=== PATIENT | male | born 1955 | race Caucasian/White ===

== ENCOUNTER 2017-05-05 12:01 | Day surgery (SDC) | payer BC, OTHER ==
[2017-05-05] VITALS (10 sets, daily range): BP systolic 111–159; BP diastolic 69–96; PULSE 60–74; TEMP 97.4–98.4
[~2017-05-05] VITALS: Ht 172.7 cm; Wt 56.5 kg
[~2017-05-05 12:01] MED LIST: CIPRO 500MG TA500 MG PO; LORTAB 5/500 501 TAB PO; NO HOME MEDICATIONS; NORCO 325 MG-7.1 TAB PO
[2017-05-05 12:54] LABS: BASO # 0.1 (0.0-0.2); BASO % 0.7 % (0.0-2.0); EOS # 0.1 (0.0-0.7); EOS % 1.7 % (0-4.0); GRAN % 54.3 % (42.2-75.2); HEMATOCRIT 47.2 % (42.0-52.0); HEMOGLOBIN 16.2 g/dl (13.5-18.0); LYMPH # 2.4 (1.2-3.4); LYMPH % 31.8 % (20.0-51.0); MEAN CELL VOLUME 93 fl (80.0-100.0); MEAN CORPUSCULAR HEMOGLOBIN 32 pg (27.0-31.0); MEAN CORPUSCULAR HGB CONC 34 g/dl (33.0-37.0); MEAN PLATELET VOLUME 10.7 fl (7.4-10.4); MONO # 0.8 (0.1-0.6); MONO % 11.2 % (1.7-9.3); PLATELET COUNT 222 K/mm3 (130-400); RED BLOOD COUNT 5.07 M/mm3 (4.20-5.60); REDCELL DISTRIBUTION WIDTH-CV 12.1 % (11.5-14.5)
[2017-05-06 01:24] VITALS: BP 108/68; PULSE 70; TEMP 98.1
[2017-05-06 05:24] VITALS: BP 138/77; PULSE 71; TEMP 98.4
[2017-05-06 09:49] VITALS: BP 152/75; PULSE 66; TEMP 97.4
[2017-05-06 13:58] VITALS: BP 143/71; PULSE 66; TEMP 98.2
== END 2017-05-06 17:45 | disposition home or self-care (01) ==
LOC: SDCO 12:01 → SURG 17:34 → SDCO 05-06 17:45
PROVIDERS: Urology
DX: C67.9 Malignant neoplasm of bladder, unspecified (principal); N30.20 Other chronic cystitis without hematuria; E78.5 Hyperlipidemia, unspecified; R73.03 Prediabetes; E66.9 Obesity, unspecified; Z90.49 Acquired absence of other specified parts of digestive tract
CPT/HCPCS: OP; A9284; J0360; J0690; J1100; J2270; J2405; J2704; J3010; J7120; J9280

== ENCOUNTER 2017-06-03 05:23 | Day surgery (SDC) | payer BC, OTHER ==
[~2017-06-03] VITALS: Ht 172.7 cm; Wt 124.3 kg
[2017-06-03] VITALS (10 sets, daily range): BP systolic 119–145; BP diastolic 70–90; PULSE 57–80; TEMP 97.6–98.2
[2017-06-03] MEDS ORDERED: TYLENOL 325MG325 MG PO (05:45)
[2017-06-03] MEDS ORDERED: PRILOTC PO (05:46)
== END 2017-06-03 19:10 | disposition home or self-care (01) ==
LOC: SDCO 05:23 → SURG 08:30 → SDCO 19:10
DX: C67.9 Malignant neoplasm of bladder, unspecified (principal); E78.5 Hyperlipidemia, unspecified; E66.9 Obesity, unspecified; R73.03 Prediabetes; Z90.49 Acquired absence of other specified parts of digestive tract; Z87.891 Personal history of nicotine dependence
CPT/HCPCS: OP; J0360; J0690; J1100; J2270; J2405; J2704; J3010; J3480; J7120

== ENCOUNTER 2017-07-16 10:52 | Day surgery (SDC) | payer BC, OTHER ==
[2017-07-16] VITALS (11 sets, daily range): BP systolic 118–152; BP diastolic 74–88; PULSE 46–66; TEMP 97.5–98.5
[~2017-07-16] VITALS: Ht 167.6 cm; Wt 121.1 kg
[~2017-07-16 10:52] MED LIST changes: +PRILOTC PO; +TYLENOL 325MG325 MG PO
[2017-07-17 05:16] VITALS: BP 159/80; PULSE 55; TEMP 98.1
[2017-07-17 07:54] VITALS: BP 171/86; PULSE 59; TEMP 97.4
== END 2017-07-17 11:20 | disposition home or self-care (01) ==
LOC: SDCO 10:52 → SURG 14:20 → SDCO 07-17 11:20
DX: C67.9 Malignant neoplasm of bladder, unspecified (principal)
CPT/HCPCS: OP; J0690; J1100; J2270; J2405; J2704; J3010; J7120

== ENCOUNTER 2017-11-05 06:39 | Day surgery (SDC) | payer BC, OTHER ==
[~2017-11-05] VITALS: Ht 172.7 cm; Wt 117.9 kg
[2017-11-05] VITALS (15 sets, daily range): BP systolic 113–156; BP diastolic 61–90; PULSE 43–84; TEMP 97–97.6
[2017-11-06 00:01] VITALS: BP 117/67; PULSE 91; TEMP 98.2
[2017-11-06 00:15] VITALS: BP 136/84; PULSE 62
[2017-11-06 03:47] VITALS: BP 142/63; PULSE 68; TEMP 98.6
[2017-11-06 08:58] VITALS: BP 159/93; PULSE 61; TEMP 98.2; TEMP 98.7
[2017-11-06 12:26] VITALS: BP 160/86; PULSE 61; TEMP 98.2; TEMP 98.3
== END 2017-11-06 12:00 | disposition home or self-care (01) ==
LOC: SDCO 06:39 → SURG 11:07 → SDCO 11-06 12:00
DX: C67.9 Malignant neoplasm of bladder, unspecified (principal); R31.0 Gross hematuria; E78.5 Hyperlipidemia, unspecified; R73.03 Prediabetes; K21.9 Gastro-esophageal reflux disease without esophagitis; E66.9 Obesity, unspecified; Z68.41 Body mass index [BMI] 40.0-44.9, adult; Z90.49 Acquired absence of other specified parts of digestive tract
CPT/HCPCS: OP; J0690; J1100; J1885; J2250; J2270; J2405; J2704; J3010; J7120

== ENCOUNTER 2018-03-31 07:13 | Day surgery (SDC) | payer BC, OTHER ==
[2018-03-31] VITALS (8 sets, daily range): BP systolic 137–154; BP diastolic 81–94; PULSE 61–84; TEMP 96–98.4
[~2018-03-31] VITALS: Ht 172.7 cm; Wt 122.4 kg
--- NOTE | 2018-03-31 09:15 | NUR ---
Patient rounding completed. Patient resting comfortably in room. Denies any needs at this time.
--- NOTE | 2018-03-31 10:14 | NUR ---
Patient rounding completed. Patient resting comfortably in room. Denies any needs at this time.
--- NOTE | 2018-03-31 12:17 | NUR ---
REPORT FROM [facility] PACU @ 1150. PT TO ROOM 350 PER BED. A/OX3. LUNGS CLEAR, BOWEL SOUNDS PRESENT,. QUINN TO DD WITH CBI RUNNING CLEAR. SCDS PLACED BILATERALLY. PT DENIES NEEDS. MAY DISCHARGE WHEN CRITERIA MET.
--- NOTE | 2018-03-31 17:34 | NUR ---
DISCHARGE INSTRURCTIONS REVIEWED WITH PATIENT QUESTIONS ANSWERED. PT AMBULATORY TO FRONT.
== END 2018-03-31 17:30 | disposition home or self-care (01) ==
LOC: SDCO 07:13 → SURG 12:00 → SDCO 17:30
DX: C67.2 Malignant neoplasm of lateral wall of bladder (principal); Z85.51 Personal history of malignant neoplasm of bladder; E78.5 Hyperlipidemia, unspecified; R73.03 Prediabetes; E66.9 Obesity, unspecified; Z68.41 Body mass index [BMI] 40.0-44.9, adult
CPT/HCPCS: OP; J0690; J1100; J2405; J2704; J3010; J7120

== ENCOUNTER 2020-09-13 09:37 | Day surgery (SDC) | payer BC, MEDICARE, OTHER ==
[~2020-09-13] VITALS: Ht 172.7 cm; Wt 116.0 kg
[2020-09-13 10:49] VITALS: BP 122/94; PULSE 73; TEMP 98.5
[2020-09-13 11:45] VITALS: BP 125/83; PULSE 70; TEMP 97.4
--- NOTE | 2020-09-13 11:45 | NUR ---
Patient arrives to [facility] via cart, accompanied by Endo RN. He is alert and oriented. He ambulates to the chair in his room with steady gait. PIV to TKO. Monitoring is applied - VSS and WNL on room air. He denies pain or nausea. He is offered and receives juice and pudding to eat.
[2020-09-13 12:00] VITALS: BP 126/76; PULSE 58
[2020-09-13 12:15] VITALS: BP 128/78; PULSE 56
--- NOTE | 2020-09-13 12:23 | NUR ---
Patient has met discharge criteria. Discharge instructions are discussed; he denies any questions and verbalizes understanding. PIV is removed with catheter intact and hemostasis achieved. He changes to his clothing independently. He will wait for Dr. Weiss to come and speak with him prior to discharge.
--- NOTE | 2020-09-13 12:55 | NUR ---
Patient is discharged to home with ride at 1255.
== END 2020-09-13 12:55 | disposition home or self-care (01) ==
LOC: SDCO 09:37
DX: Z12.11 Encounter for screening for malignant neoplasm of colon (principal); K57.30 Diverticulosis of large intestine without perforation or abscess without bleeding; K21.9 Gastro-esophageal reflux disease without esophagitis; Z87.891 Personal history of nicotine dependence; Z68.41 Body mass index [BMI] 40.0-44.9, adult; Z20.822 Contact with and (suspected) exposure to COVID-19; Z79.899 Other long term (current) drug therapy; Z86.010 Personal history of colon polyps
CPT/HCPCS: J2704; J7030

== ENCOUNTER 2020-12-18 05:34 | Emergency (ER) | payer BC, MEDICARE, OTHER ==
[~2020-12-18] VITALS: Ht 172.7 cm; Wt 122.7 kg
[2020-12-18 05:41] VITALS: TEMP 97
[2020-12-18 06:26] LABS: BASO % 0.4 % (0.0-2.0); EOS # 0.2 K/mm3 (0.0-0.7); EOS % 2.6 % (0-4.0); GRAN # 4.2 K/mm3 (1.4-6.5); HEMATOCRIT 42.7 % (42.0-52.0); HEMOGLOBIN 14.3 g/dl (13.5-18.0); LYMPH # 1.9 K/mm3 (1.2-3.4); MEAN CELL VOLUME 93 fl (80.0-100.0); MEAN CORPUSCULAR HEMOGLOBIN 31 pg (27.0-31.0); MEAN CORPUSCULAR HGB CONC 34 g/dl (33.0-37.0); MEAN PLATELET VOLUME 9.9 fl (7.4-10.4); MONO # 0.9 K/mm3 (0.1-0.6); MONO % 12.6 % (1.7-9.3); PLATELET COUNT 243 K/mm3 (130-400); RED BLOOD COUNT 4.61 M/mm3 (4.20-5.60); REDCELL DISTRIBUTION WIDTH-CV 12.4 % (11.5-14.5)
[2020-12-18 06:47] LABS: ALBUMIN 3.7 gm/dL (3.4-4.8); BILIRUBIN,TOTAL 0.5 mg/dL (0.2-1.2); CALCIUM 9.2 mg/dL (8.4-10.2); CREATININE, serum 0.85 mg/dL (0.72-1.25); POTASSIUM 4.6 mmol/L (3.5-4.5); TOTAL PROTEIN 6.6 gm/dL (6.2-8.1)
[2020-12-18 07:04] LABS: COLLECTION METHOD CLEAN CATCH
[2020-12-18 07:16] LABS: MUCOUS Present /lpf; PH 5 (5-8); SQUAMOUS EPITHELIAL None Seen /hpf; URINE APPEARANCE Clear; URINE BACTERIA None Seen /hpf; URINE BILIRUBIN Negative (NEGATIVE); URINE BLOOD Negative (NEGATIVE); URINE COLOR Straw; URINE GLUCOSE Negative (NEGATIVE); URINE KETONE Negative (NEGATIVE); URINE LEUKOCYTE ESTERASE Negative (NEGATIVE); URINE NITRATE Negative (NEGATIVE); URINE PROTEIN(semi-quant) Negative (NEGATIVE); URINE RBC 0-2 /hpf; URINE UROBILINOGEN Negative (NEGATIVE)
[2020-12-18 08:11] VITALS: BP 155/86; PULSE 74
== END 2020-12-18 08:11 | disposition home or self-care (01) ==
LOC: COL.ER 05:34
PROVIDERS: Emergency Medicine
DX: R10.9 Unspecified abdominal pain (principal); Z90.49 Acquired absence of other specified parts of digestive tract
CPT/HCPCS: J2270; J2405; J7030; Q9967

== ENCOUNTER 2022-04-12 11:16 | Emergency (ER) | payer BC, MEDICARE, OTHER ==
[~2022-04-12] VITALS: Ht 172.7 cm; Wt 127.3 kg
[2022-04-12 11:24] VITALS: TEMP 98
[2022-04-12] MEDS ORDERED: ANUSOL HC CREAM30 GM TP (11:49)
[2022-04-12 11:59] VITALS: BP 146/89; PULSE 81
== END 2022-04-12 11:59 | disposition home or self-care (01) ==
LOC: COL.ER 11:16
DX: K64.5 Perianal venous thrombosis (principal)